=== PATIENT | male | born 1960 | race Asian ===

== ENCOUNTER 2018-01-31 08:38 | Emergency (ER) | payer SELFPAY ==
[~2018-01-31] VITALS: Ht 172.7 cm; Wt 85.7 kg
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
--- NOTE | 2018-01-31 08:43 | NUR ---
RAY AT BEDSIDE
[2018-01-31] MEDS ORDERED: ONDANSETRON HCL/PF 4 MG/2 ML VIAL ONE (08:49)
[2018-01-31] MEDS ORDERED: ASPIRIN 81 MG TAB.CHEW ONE (08:50)
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
[2018-01-31] MEDS ORDERED: IV NS 0.9% 1,000 ML BAG IV ONE (09:00)
[2018-01-31] MEDS ORDERED: ASPIRIN 81 MG TAB.CHEW PO ONE (09:00)
[2018-01-31] MEDS ORDERED: TRAMADOL HCL 50 MG TABLET PO ONE (09:00)
[2018-01-31] MEDS ORDERED: ONDANSETRON HCL/PF 4 MG/2 ML VIAL IVP ONE (09:00)
[2018-01-31] MEDS ORDERED: TRAMADOL HCL 50 MG TABLET ONE ×2 (09:03→09:05)
--- NOTE | 2018-01-31 09:13 | NUR ---
PATIENT WAS TAKEN TO CT
[2018-01-31 09:59] VITALS: BP 157/99
--- NOTE | 2018-01-31 10:23 | NUR ---
WAITING FOR PATIENT'S TO PICK HIM UP
--- NOTE | 2018-01-31 12:35 | NUR ---
PATIENT WAS PICKED UP BY FAMILY. DISCHARGE TRANSLATED BY CAT MATTHEWS,.
== END 2018-01-31 12:38 | disposition home or self-care (01) ==
LOC: ER 08:40
DX: R51 Headache (principal); V49.49XA Driver injured in collision with other motor vehicles in traffic accident, initial encounter; Y93.89 Activity, other specified; Y92.413 State road as the place of occurrence of the external cause; Y99.8 Other external cause status
CPT/HCPCS: 70450-TC; A4606; J2405; J7030; Z7610